=== PATIENT | male | born 1985 | race Hispanic/Latino ===

== ENCOUNTER 2017-04-03 03:31 | Emergency (ER) | payer OTHER ==
[2017-04-03 03:46] VITALS: BMI 24.4
[2017-04-03 03:49] VITALS: RESP 16; TEMP 98.4; O2SAT 100
--- NOTE | 2017-04-03 04:13 | ED PDOC ---
- ECG O2 Sat by Pulse Oximetry: 100 Disposition - Disposition
--- NOTE | 2017-04-03 04:23 | ED PDOC ---
HPI: SOB/CHF/COPD Time Seen by Provider: 04/03/17 03:50 Chief Complaint (Nursing): Anxiety Chief Complaint (Provider): SOB History Per: Patient History/Exam Limitations: no limitations Onset/Duration Of Symptoms: Days (2 days) Current Symptoms Are (Timing): Still Present Associated Symptoms: Anxiety. denies: Fever, Chest Pain, Productive Cough Additional Complaint(s): Patient is a 31 y/o male presenting to the ED with complaints of worsened SOB x2 days, and has a history of asthma and anxiety. The patient reports he has been using his inhaler with minimal relief and also claims to feel numbness to his fingers and toes. He admits to being anxious due to an upcoming geographical relocation that he and his are in the midst of planning. He denies fever, cough, nausea, vomiting, and chest pain. PCP: [facility] Past Medical History Reviewed: Historical Data, Nursing Documentation, Vital Signs Vital Signs: Last Vital Signs Temp 98.4 F 04/03/17 03:46 Pulse 74 04/03/17 03:46 Resp 16 04/03/17 03:46 BP 148/102 H 04/03/17 03:46 Pulse Ox 100 04/03/17 04:36 - Medical History PMH: Anxiety, Asthma - Family History Family History: States: Unknown Family Hx - Allergies Allergies/Adverse Reactions: Allergies Allergy/AdvReac Type Severity Reaction Status Date / Time No Known Allergies Allergy Verified 04/03/17 03:46 Review of Systems ROS Statement: Except As Marked, All Systems Reviewed And Found Negative Constitutional: Negative for: Fever Cardiovascular: Negative for: Chest Pain Respiratory: Positive for: Shortness of Breath. Negative for: Cough Gastrointestinal: Negative for: Nausea, Vomiting Psych: Positive for: Anxiety Physical Exam - Reviewed Nursing Documentation Reviewed: Yes Vital Signs Reviewed: Yes - Physical Exam Appears: Positive for: Well, No Acute Distress Head Exam: Positive for: ATRAUMATIC, NORMOCEPHALIC Skin: Positive for: Normal Color, Warm, Dry Eye Exam: Positive for: Normal appearance ENT: Positive for: Normal ENT Inspection Neck: Positive for: Normal, Supple Cardiovascular/Chest: Positive for: Regular Rate, Rhythm. Negative for: Murmur Respiratory: Positive for: Normal Breath Sounds. Negative for: Wheezing Gastrointestinal/Abdominal: Positive for: Normal Exam, Soft. Negative for: Tenderness Neurologic/Psych: Positive for: Alert, Oriented (x3), Mood/Affect (Anxious and tearful) - ECG O2 Sat by Pulse Oximetry: 100 (RA) Medical Decision Making Medical Decision Making: Time: 04:03 Initial Impression: 31 y/o male with SOB and prior history of anxiety Initial Plan: --Ativan 1 mg PO --Crisis Eval 05:22 Patient reports marked improvement in symptoms. After evaluation by crisis, patient given referrals to follow up as an out patient relating to his stress and anxiety. Patient is stable upon discharge. Diagnosis: Anxiety Scribe Attestation: Documented by Germain Abdul, acting as a scribe for Andrae Murray MD Provider Scribe Attestation: All medical record entries made by the Scribe were at my direction and personally dictated by me. I have reviewed the chart and agree that the record accurately reflects my personal performance of the history, physical exam, medical decision making, and the department course for this patient. I have also personally directed, reviewed, and agree with the discharge instructions and disposition. Disposition - Clinical Impression Clinical Impression: Anxiety - Patient ED Disposition Is Patient to be Admitted: No - Disposition Disposition: Routine/Home Disposition Time: 05:22 Condition: STABLE Instructions: Stress (ED), Anxiety (ED) Forms: [employer] (Slovak)
[2017-04-03 05:34] VITALS: BP 125/86; PULSE 56
== END 2017-04-03 05:35 | disposition home or self-care (01) ==
LOC: H.ER 03:31
DX: F41.9 Anxiety disorder, unspecified (principal)